=== PATIENT | female | born 1955 | race Caucasian/White ===

== ENCOUNTER → 2016-07-16 | Outpatient (CLI) | payer MEDICARE, MEDICAID | LOC: WI 11:08 | PROVIDERS: ATTEND Physician Assistant Medical | DX: Z12.31 Encounter for screening mammogram for malignant neoplasm of breast (principal); Z78.0 Asymptomatic menopausal state | CPT/HCPCS: 77080; G0202; 77067 ==

== ENCOUNTER 2017-11-17 12:01 | Emergency (ER) | payer MEDICARE, MEDICAID ==
--- NOTE | 2017-11-17 12:37 | ER Document Report ---
ED Medical Screen (RME) - General Chief Complaint: Leg Pain Stated Complaint: RIGHT LEG PAIN Time Seen by Provider: 11/17/17 12:34 Notes: RAPID MEDICAL EVALUATION DISCLOSURE I have seen this patient as part of a Rapid Medical Evaluation and, if applicable, placed any initially appropriate orders. The patient will be seen and fully evaluated, including a full history and physical exam, by a provider ( in Main ED or Fast Track) when a room becomes available. 62-year-old female here with complaints of right thigh and leg pain progressively worsening over the past 2 weeks. Pain is worse with movement. Pain is improved with minimizing movement however, even at rest, she still has the pain. She has tried ibuprofen with some improvement. Denies numbness tingling weakness chest pain shortness of breath. She does state that she has a history of blood clot in my right shoulder however reports she was never on a blood thinner for it. EXAM Mild right thigh and leg muscle TTP No appreciable swelling TRAVEL OUTSIDE OF THE [place] IN LAST 30 DAYS: No - Related Data Allergies/Adverse Reactions: No Known Allergies Allergy (Verified 11/17/17 12:02) Past Medical History - Social History Chew tobacco use (# tins/day): No Frequency of alcohol use: Occasional Drug Abuse: None - Past Medical History Cardiac Medical History: Reports: Hx Hypertension Renal/ Medical History: Denies: Hx Peritoneal Dialysis Psychiatric Medical History: Reports: Hx Bipolar Disorder, Hx Depression Past Surgical History: Reports: Hx Hysterectomy, Hx Tubal Ligation Physical Exam - Vital signs Vitals: Temp Pulse Resp BP Pulse Ox 97.7 F 72 18 138/62 H 100 11/17/17 12:12 11/17/17 12:12 11/17/17 12:12 11/17/17 12:12 11/17/17 12:12 Course - Vital Signs Vital signs: Temp Pulse Resp BP Pulse Ox 97.7 F 72 18 138/62 H 100 11/17/17 12:12 11/17/17 12:12 11/17/17 12:12 11/17/17 12:12 11/17/17 12:12 Doctor's Discharge - Discharge Referrals: JAX MORAN MD [Primary Care Provider] - Follow up as needed
[2017-11-17 13:22] LABS: ABSOLUTE BASOPHILS # (AUTO) 0.1 10^3/uL (0.0-0.2); ABSOLUTE EOSINOPHILS # (AUTO) 0.1 10^3/uL (0.0-0.6); ABSOLUTE LYMPHOCYTES (AUTO) 1.7 10^3/uL (0.5-4.7); ABSOLUTE MONOCYTES (AUTO) 0.6 10^3/uL (0.1-1.4); ABSOLUTE NEUT (AUTO) 4.3 10^3/uL (1.7-8.2); BASOPHILS % (AUTO) 0.9 % (0-2); EOSINOPHILS % (AUTO) 0.9 % (0-6); HEMATOCRIT 37.6 % (36.0-47.0); HEMOGLOBIN 12.9 g/dL (12.0-15.5); LYMPHOCYTES % (AUTO) 25.6 % (13-45); MEAN CORPUSCULAR HEMOGLOBIN 28.6 pg (27.0-33.4); MEAN CORPUSCULAR HGB CONC 34.3 g/dL (32.0-36.0); MEAN CORPUSCULAR VOLUME 83 fl (80-97); MONOCYTES % (AUTO) 8.7 % (3-13); PLATELET COUNT 301 10^3/uL (150-450); RED BLOOD COUNT 4.52 10^6/uL (3.72-5.28); SEGMENTED NEUTROPHILS % (AUTO) 63.9 % (42-78); TOTAL CELLS COUNTED % (AUTO) 100 %; WHITE BLOOD COUNT 6.7 10^3/uL (4.0-10.5)
[2017-11-17 13:42] LABS: ANION GAP 11 (5-19); BLOOD UREA NITROGEN 14 mg/dL (7-20); CALCIUM 9.6 mg/dL (8.4-10.2); CARBON DIOXIDE 28 mmol/L (22-30); CHLORIDE 95 mmol/L (98-107); GLUCOSE 130 mg/dL (75-110); POTASSIUM 3.9 mmol/L (3.6-5.0); SODIUM 133.6 mmol/L (137-145)
--- NOTE | 2017-11-17 14:19 | RADIOLOGY REPORT (SQ) ---
EXAM DESCRIPTION: VENOUS UNILATERAL LOWER COMPLETED DATE/TIME: 11/17/2017 2:04 pm REASON FOR STUDY: R thigh leg pain; eval DVT COMPARISON: None. TECHNIQUE: Dynamic and static de la garza scale and color images acquired of the right leg venous system. S elected spectral images acquired with additional compression and augmentation maneuvers. The contrala teral common femoral vein and saphenofemoral junction were also imaged. Images stored on PACS. LIMITATIONS: None. FINDINGS: COMMON FEMORAL: Normal phasicity, compression and augmentation. No visualized echogenic ma terial on de la garza scale. No defects on color images. FEMORAL: Normal compression and augmentation. No visualized echogenic material on de la garza scale. No defe cts on color images. POPLITEAL: Normal compression, augmentation. No visualized echogenic material on de la garza scale. No defec ts on color images. CALF VESSELS: Normal compression, augmentation. No visualized echogenic material on de la garza scale. No de fects on color images. GSV and SSV: Normal compression, augmentation. No visualized echogenic material on de la garza scale. No def ects on color images. ANY DEEP VENOUS INSUFFICIENCY: Not evaluated. ANY EVIDENCE OF POPLITEAL CYST: No. OTHER: No other significant finding. CONTRALATERAL COMMON FEMORAL VEIN AND SAPHENOFEMORAL JUNCTION: Normal phasicity, compression and augmentation. No visualized echogenic material on de la garza scale. No de fects on color images. IMPRESSION: NO EVIDENCE OF DVT OR SVT IN THE RIGHT LEG. COMMENT: 1. The results of this examination were discussed with the patient's emergency department provider on 11/17/2017 at 14:14 hours. TECHNICAL DOCUMENTATION: JOB ID: [id number] [employer] MD- All Rights Reserved Reading location - IP/workstation name: [email or web address]
[2017-11-17] MEDS ORDERED: HYDROCODONE/ACETAMINOPHEN 5-325 MG TABLET PO ONE (14:46)
[2017-11-17] MEDS ORDERED: PREDNISONE 20 MG TABLET PO ONE (14:46)
--- NOTE | 2017-11-17 14:46 | ER Document Report ---
ED Extremity Problem, Lower - General Mode of Arrival: Ambulatory Information source: Patient TRAVEL OUTSIDE OF THE [place] IN LAST 30 DAYS: No <KALINA MARLOW - Last Filed: 11/17/17 15:57> <RENITA ALONSO - Last Filed: 11/17/17 18:12> - General Chief Complaint: Leg Pain Stated Complaint: RIGHT LEG PAIN Time Seen by Provider: 11/17/17 12:34 Notes: Patient is a 62 year old female with acid reflux, hiatal hernia, arthritis, anxiety presenting to the emergency department complaining of right lower extremity pain onset 2 weeks ago. Patient states the pain initially started in her right hip and gradually radiated into her right thigh then, right knee and down into her ankle. Patient describes the pain as a sharp and shooting that is located anteriorly and posteriorly. Patient states the pain is exacerbated with movement and is worse in the morning and the evening. Patient states she has taken Ibuprofen, Advil and Excedrin without any relief. Patient denies any numbness, tingling, weakness, chest pain, shortness of breath, dysuria or incontinence. Patient is currently taking Klonopin, Flexeril and Lyrica (300 mg daily). (KALINA MARLOW) - Related Data Allergies/Adverse Reactions: No Known Allergies Allergy (Verified 11/17/17 12:02) Past Medical History - General Information source: Patient - Social History Smoking Status: Current Every Day Smoker Chew tobacco use (# tins/day): No Frequency of alcohol use: Occasional Drug Abuse: None Family History: Reviewed & Not Pertinent Patient has suicidal ideation: No Patient has homicidal ideation: No - Past Medical History Cardiac Medical History: Reports: Hx Hypertension GI Medical History: Reports: Hx Hiatal Hernia Psychiatric Medical History: Reports: Hx Bipolar Disorder, Hx Depression Past Surgical History: Reports: Hx Hysterectomy, Hx Tubal Ligation <KALINA MARLOW - Last Filed: 11/17/17 15:57> Review of Systems - Review of Systems Constitutional: No symptoms reported EENT: No symptoms reported Cardiovascular: No symptoms reported Respiratory: No symptoms reported Gastrointestinal: No symptoms reported Genitourinary: No symptoms reported Female Genitourinary: No symptoms reported Musculoskeletal: See HPI Skin: No symptoms reported Hematologic/Lymphatic: No symptoms reported Neurological/Psychological: No symptoms reported -: Yes All other systems reviewed and negative <KALINA MARLOW - Last Filed: 11/17/17 15:57> Physical Exam <ELEKALINA EVANS - Last Filed: 11/17/17 15:57> <NAVEEDRENITA - Last Filed: 11/17/17 18:12> - Vital signs Vitals: Temp Pulse Resp BP Pulse Ox 97.7 F 72 18 138/62 H 100 11/17/17 12:12 11/17/17 12:12 11/17/17 12:12 11/17/17 12:12 11/17/17 12:12 - Notes Notes: GENERAL: Alert, interacts well. No acute distress. Smells deeply of alcohol. HEAD: Normocephalic, atraumatic. EYES: Pupils equal, round, and reactive to light. Extraocular movements intact. ENT: Oral mucosa moist, tongue midline. NECK: Full range of motion. Supple. Trachea midline. LUNGS: Clear to auscultation bilaterally, no wheezes, rales, or rhonchi. No respiratory distress. HEART: Regular rate and rhythm. No murmurs, gallops, or rubs. ABDOMEN: Soft, non-tender. Non-distended. Bowel sounds present in all 4 quadrants. EXTREMITIES: Moves all 4 extremities spontaneously. No edema, radial and dorsalis pedis pulses 2/4 bilaterally. No cyanosis. Able to elevate left foot off the bed. Able to elevate right foot off the bed although it takes longer and appears more difficult. Small amount of pain with log roll of right hip and in knee joint. Crepitus with flexion of right knee joint. Straight leg testing is negative. Right knee is tender to palpation.5/5 great toe dorisflexion bilaterally. Paterall DTR on right is diminished, 1+, compared to left. Negative anterior and posterior drawer test. No laxity with varus and valgus testing. Sensations intact. NEUROLOGICAL: Alert and oriented x3. Normal speech. PSYCH: Normal affect, normal mood. SKIN: Warm, dry, normal turgor. Some scabbing noted to shins bilaterally. BACK: No bony midline tenderness to palpation. No tenderness over SI joints bilaterally. (KALINA MARLOW) Course - Laboratory Result Diagrams: 11/17/17 12:45 11/17/17 12:45 <KALINA MARLOW - Last Filed: 11/17/17 15:57> - Laboratory Result Diagrams: 11/17/17 12:45 11/17/17 12:45 <RENITA ALONSO - Last Filed: 11/17/17 18:12> - Re-evaluation Re-evalutation: 11/17/17 14:48 CBC unremarkable, BMP shows hyponatremia consistent with her history of heavy alcohol use. Venous Doppler negative for DVT. No evidence of cauda equina. No bowel or bladder dysfunction, no saddle anesthesia, negative straight leg raising test. Patient's symptoms are suspicious for pinched lumbar nerve given that the pain radiates all the way down to her foot past the knee joint but also suspicious for arthritis given the crepitus in her right knee and the fact that her pain improves throughout the day with movement but then worsens again towards the evening. Patient is already taking Lyrica however she does not take it as directed. Patient states that she takes 300 mg tablets all 3 in the morning rather than 1 tablet 3 times a day. Patient is also prescribed Flexeril but states she accidentally threw it away. Patient is, encouraged to take her Lyrica as prescribed and contact her primary care physician to have her Flexeril refilled. Patient is encouraged to follow-up with pain management for possible steroid injection into the spine. No indication from emergent MRI at this time. Patient will be discharged to home. Patient will be given prednisone by mouth for a 4 day burst to try and decrease some of her pain. (RENITA ALONSO) - Vital Signs Vital signs: Temp Pulse Resp BP Pulse Ox 97.7 F 69 18 135/64 H 100 11/17/17 12:12 11/17/17 15:36 11/17/17 15:36 11/17/17 15:36 11/17/17 15:36 - Laboratory Laboratory results interpreted by al: 11/17/17 11/17/17 12:45 12:45 RDW 16.0 H Sodium 133.6 L Chloride 95 L Glucose 130 H Discharge <KALINA MARLOW - Last Filed: 11/17/17 15:57> <RENITA ALONSO - Last Filed: 11/17/17 18:12> - Discharge Clinical Impression: Lumbar radiculopathy, chronic, Arthritis of right knee Condition: Stable Disposition: HOME, SELF-CARE Additional Instructions: I suspect that your pain is coming from a combination of the pinched nerve in your back and arthritis in your right knee. Please take the Lyrica as directed 1 tablet 3 times a day rather than taking all 3 of them at the same time in the morning. This should help to better control your pain. Please contact your primary care physician to see about having your Lyrica refilled as your daughter accidentally threw it away. I have prescribed you prednisone, this is a steroid, it will help to decrease any inflammation in your back and hopefully decrease some of your pain. It is only a 4 day burst. Please be aware it may cause some anxiety or insomnia. If you notice the side effects and finds them intolerable you may stop it at any time. Please return for urinary or fecal incontinence, numbness, inability to lift your foot or any new or concerning symptoms. Prescriptions: Prednisone 40 mg PO DAILY #6 tablet Referrals: JAX MORAN MD [Primary Care Provider] - Follow up in 3-5 days Scribe Attestation: 11/17/17 18:12 I personally performed the services described in the documentation, reviewed and edited the documentation which was dictated to the scribe in my presence, and it accurately records my words and actions. (RENITA ALONSO) Scribe Documentation - Scribe Written by Naun:: Naun Amor, 11/17/2017 15:08 acting as scribe for :: Naveed <KALINA MARLOW - Last Filed: 11/17/17 15:57>
[2017-11-17 15:37] VITALS: BP 135/64
== END 2017-11-17 15:37 | disposition home or self-care (01) ==
LOC: ER 12:01
DX: M54.16 Radiculopathy, lumbar region (principal); M17.11 Unilateral primary osteoarthritis, right knee; Z91.14 Patient's other noncompliance with medication regimen; E87.1 Hypo-osmolality and hyponatremia; R23.4 Changes in skin texture; F17.200 Nicotine dependence, unspecified, uncomplicated; I10 Essential (primary) hypertension; Z79.899 Other long term (current) drug therapy
CPT/HCPCS: 99284; 36415; 85025; 80048; 93971; A9270 ×2; J7512